=== PATIENT | female | born 1945 | race Caucasian/White ===

== ENCOUNTER 2019-06-28 10:51 | Outpatient (CLI) | payer MEDICARE, MEDICAID, SELFPAY ==
--- NOTE | 2019-06-28 11:01 | CT_ITS ---
WS: [id number] CT ABDOMEN AND PELVIS WITH CONTRAST HISTORY: ABDOMINAL PAIN, epigastric pain with nausea and vomiting. TECHNIQUE: Imaging performed of the abdomen and pelvis with IV contrast. Single phase imaging of the abdomen. Coronal and sagittal reformats are submitted. All CT scans at [facility] use at least one of these dose optimization techniques: automated exposure control; mA and/or kV adjustment per patient size (includes targeted exams where dose is matched to clinical indication); or iterativ e reconstruction. IV CONTRAST: Omnipaque 300; 95 mL IV. Oral contrast: Yes. DLP: 1116.77 mGycm COMPARISON: 04/05/2016 Lower thorax: Lung bases are clear. Heart is normal size. High density contrast in the distal esophag us from reflux disease. Liver/biliary system: Mild hepatic steatosis with no enlargement of the liver. Gallbladder: Normal. Pancreas: Normal. Spleen: Normal. Adrenal glands: Normal. Right kidney: Normal. Left kidney: Normal size kidney. Stable 6 mm hypodense nodule in the medial lower pole. Aorta: Mild atherosclerosis with no aneurysm. Lymphadenopathy: None. Free fluid: None. GI tract: Prior appendectomy. Abdominal wall: Thinning of the anterior abdominal wall but no herniation. Pelvis: Well-distended urinary bladder. No adenopathy or fluid. Bones: L4 anterolisthesis by 6 mm. Advanced degenerative disc disease and facet arthropathy at L4-5 a nd L5-S1. CT/CT abdomen pelvis w con* [id number] IMPRESSION: 1. Mild hepatic steatosis. 2. Prior appendectomy. 3. No acute abdominal or pelvic abnormalities. 4. Gastroesophageal reflux into the distal esophagus.
[2019-06-28 12:09] LABS: Blood Urea Nitrogen 10 mg/dL (8-23)
[2019-06-28] MEDS: iohexol 300 mg/mL 50 mL Btl PO (12:19)
[2019-06-28] MEDS: iohexol 300 mg/mL 100 mL Btl IV (12:55)
== END 2019-06-28 10:52 | disposition home or self-care (01) ==
LOC: RADWPI 11:00
PROVIDERS: Family Provider Family Medicine; PCP Family Medicine; Referring Provider Family Medicine; Visit Provider Surgery
DX: K21.9 Gastro-esophageal reflux disease without esophagitis (principal); K76.0 Fatty (change of) liver, not elsewhere classified
CPT/HCPCS: 74177; 82565; 84520; Q9967

== ENCOUNTER → 2019-10-31 13:07 | Outpatient (BNVA) | payer MEDICARE, MEDICAID, SELFPAY | PROVIDERS: Family Provider Family Medicine; PCP Family Medicine; Referring Provider Family Medicine; Visit Provider Podiatrist Foot & Ankle Surgery | DX: M79.672 Pain in left foot (principal); M79.671 Pain in right foot; E11.43 Type 2 diabetes mellitus with diabetic autonomic (poly)neuropathy; M20.12 Hallux valgus (acquired), left foot; M20.11 Hallux valgus (acquired), right foot | CPT/HCPCS: 73630 ==

== ENCOUNTER 2021-03-18 08:16 | Outpatient (CLI) | payer MEDICARE, MEDICAID, SELFPAY ==
--- NOTE | 2021-03-18 08:21 | MM_ITS ---
WS: [id number] BILATERAL DIGITAL SCREENING MAMMOGRAPHY WITH CAD CLINICAL INFORMATION: SCREENING HISTORY: Screening mammogram. No current complaints. COMPARISON: TECHNIQUE: Bilateral CC and MLO views. FINDINGS: Scattered fibroglandular densities bilaterally. No suspicious focal mass, asymmetry, calcifications, or architectural distortion. No evidence of malignancy. A few incidental punctate calcifications. Sta ble asymmetric breast tissue upper outer left breast. MM/[id number] IMPRESSION: BI-RADS: 2-Benign FOLLOW UP: 1 Year Follow-up Recommend return to annual screening mammography.
== END 2021-03-18 08:17 | disposition home or self-care (01) ==
PROVIDERS: PCP Family Medicine; Visit Provider Family Medicine
DX: Z12.31 Encounter for screening mammogram for malignant neoplasm of breast (principal)
CPT/HCPCS: 77067

== ENCOUNTER → 2022-03-22 10:47 | Outpatient (BNVA) | payer MEDICARE, MEDICAID, SELFPAY | PROVIDERS: PCP Family Medicine; Visit Provider Podiatrist Foot & Ankle Surgery | DX: E11.8 Type 2 diabetes mellitus with unspecified complications (principal); L60.3 Nail dystrophy; M72.2 Plantar fascial fibromatosis | CPT/HCPCS: 99213 ==

== ENCOUNTER → 2022-08-18 08:07 | Outpatient (BNVA) | payer MEDICARE, MEDICAID, SELFPAY | PROVIDERS: PCP Family Medicine; Visit Provider Podiatrist Foot & Ankle Surgery | DX: I73.9 Peripheral vascular disease, unspecified (principal); E11.8 Type 2 diabetes mellitus with unspecified complications; L60.3 Nail dystrophy; M72.2 Plantar fascial fibromatosis | CPT/HCPCS: 11721 ==

== ENCOUNTER → 2022-11-03 07:44 | Outpatient (BNVA) | payer MEDICARE, MEDICAID, SELFPAY | PROVIDERS: PCP Family Medicine; Visit Provider Podiatrist Foot & Ankle Surgery | DX: E11.8 Type 2 diabetes mellitus with unspecified complications (principal); L60.3 Nail dystrophy; M72.2 Plantar fascial fibromatosis; I73.9 Peripheral vascular disease, unspecified | CPT/HCPCS: 11721; 99213 ==

== ENCOUNTER → 2023-01-04 07:47 | Outpatient (BNVA) | payer MEDICARE, MEDICAID, SELFPAY | PROVIDERS: PCP Family Medicine; Visit Provider Podiatrist Foot & Ankle Surgery | DX: I73.9 Peripheral vascular disease, unspecified (principal); E11.9 Type 2 diabetes mellitus without complications; L60.3 Nail dystrophy | CPT/HCPCS: 11721 ==

== ENCOUNTER → 2023-03-15 08:34 | Outpatient (BNVA) | payer MEDICARE, MEDICAID, SELFPAY | PROVIDERS: PCP Family Medicine; Visit Provider Podiatrist Foot & Ankle Surgery | DX: E11.9 Type 2 diabetes mellitus without complications (principal); L60.3 Nail dystrophy; I73.9 Peripheral vascular disease, unspecified | CPT/HCPCS: 11721 ==

== ENCOUNTER → 2023-05-31 07:40 | Outpatient (BNVA) | payer MEDICARE, MEDICAID, SELFPAY | PROVIDERS: PCP Family Medicine; Visit Provider Podiatrist Foot & Ankle Surgery | DX: I73.9 Peripheral vascular disease, unspecified (principal); E11.69 Type 2 diabetes mellitus with other specified complication; L60.3 Nail dystrophy | CPT/HCPCS: 11721 ==

== ENCOUNTER → 2023-08-16 07:50 | Outpatient (BNVA) | payer MEDICARE, MEDICAID, SELFPAY | PROVIDERS: PCP Family Medicine; Visit Provider Podiatrist Foot & Ankle Surgery | DX: S99.921A Unspecified injury of right foot, initial encounter (principal); I73.9 Peripheral vascular disease, unspecified; L60.3 Nail dystrophy; L84 Corns and callosities; E11.69 Type 2 diabetes mellitus with other specified complication; S90.31XA Contusion of right foot, initial encounter; W20.8XXA Other cause of strike by thrown, projected or falling object, initial encounter | CPT/HCPCS: 11056; 11721; 73630; 99213 ==

== ENCOUNTER → 2023-11-14 06:51 | Outpatient (BNVA) | payer MEDICARE, MEDICAID, SELFPAY | PROVIDERS: PCP Family Medicine; Visit Provider Podiatrist Foot & Ankle Surgery | DX: I73.9 Peripheral vascular disease, unspecified (principal); L84 Corns and callosities; E11.69 Type 2 diabetes mellitus with other specified complication; L60.3 Nail dystrophy | CPT/HCPCS: 11056; 11721 ==

== ENCOUNTER 2024-01-24 11:41 | Outpatient (CLI) | payer MEDICARE, MEDICAID, SELFPAY ==
--- NOTE | 2024-01-24 11:45 | MM_ITS ---
WS: [id number] BILATERAL 3D TOMOSYNTHESIS DIGITAL SCREENING MAMMOGRAPHY WITH CAD CLINICAL INFORMATION: SCREENING HISTORY: Screening mammogram. No current complaints. COMPARISON: 2020 TECHNIQUE: Bilateral CC and MLO views. FINDINGS: Scattered fibroglandular densities bilaterally. No suspicious focal mass, asymmetry, calcifications, or architectural distortion. No evidence of malignancy. A few incidental punctate calcifications. Vas cular calcifications. MM/[id number] IMPRESSION: BI-RADS: 2-Benign FOLLOW UP: 1 Year Follow-up Recommend return to annual screening mammography.
== END 2024-01-24 11:42 | disposition home or self-care (01) ==
LOC: RAD 11:42
PROVIDERS: PCP Family Medicine; Visit Provider Family Medicine
DX: Z12.31 Encounter for screening mammogram for malignant neoplasm of breast (principal)
CPT/HCPCS: 77063; 77067

== ENCOUNTER → 2024-02-13 07:52 | Outpatient (BNVA) | payer MEDICARE, MEDICAID, SELFPAY | PROVIDERS: PCP Family Medicine; Visit Provider Podiatrist Foot & Ankle Surgery | DX: I73.9 Peripheral vascular disease, unspecified (principal); L84 Corns and callosities; E11.69 Type 2 diabetes mellitus with other specified complication; L60.3 Nail dystrophy; M19.071 Primary osteoarthritis, right ankle and foot | CPT/HCPCS: 11056; 11721; 99213 ==

== ENCOUNTER 2024-03-11 00:06 | Emergency (ER) | payer MEDICARE, MEDICAID, SELFPAY ==
[2024-03-11 00:08] VITALS: BP 172/96; PULSE 70; RESP 16; TEMP 36.7; O2SAT 96; BMI 31.1
--- NOTE | 2024-03-11 00:09 | CTR_ITS ---
PROCEDURE INFORMATION: Exam: CT Head Without Contrast Exam date and time: 03/11/2024 12:20 AM Age: 78 years old Clinical indication: Injury or trauma; Blunt trauma (contusions or hematomas); Patient HX: EMS arrival for fall at home. Patient thinks she May have had syncopal episode after getting up from using the bathroom. TECHNIQUE: Imaging protocol: Computed tomography of the head without contrast. Radiation optimization: All CT scans at this facility use at least one of these dose optimization techniques: automated exposure control; mA and/or kV adjustment per patient size (includes targeted exams where dose is matched to clinical indication); or iterative reconstruction. COMPARISON: No relevant prior studies available. RADIATION DOSE METRICS: Total DLP (mGy-cm): 1041.98 FINDINGS: Brain: Mild diffuse white matter disease likely reflecting chronic microvascular ischemic changes. Cerebral ventricles: No ventriculomegaly. Paranasal sinuses: Visualized sinuses are unremarkable. No fluid levels. Mastoid air cells: Visualized mastoid air cells are well aerated. Bones: Unremarkable. No acute fracture. Soft tissues: Unremarkable. CT/CT head wo con* [id number] IMPRESSION: No acute intracranial abnormality.
--- NOTE | 2024-03-11 00:10 | ECG_ITS ---
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 Measurements Intervals [place] Rate: 60 P: -74 [place]: 251 QRS: -61 QRSD: 123 T: 71 QT: 441 QTc: 443 Interpretive Statements SINUS RHYTHM WITH SINUS ARRHYTHMIA WITH FIRST DEGREE AV BLOCK LEFT AXIS DEVIATION [QRS AXIS < -30] POSSIBLE RIGHT VENTRICULAR CONDUCTION DELAY [RSR (QR) IN V1/V2] VOLTAGE CRITERIA FOR LVH [MEETS CRITERIA IN ONE OF: R(aVL), S(V1), R(V5), R(V5/V6)+S(V1)]. POSSIBLE ANTEROSEPTAL MYOCARDIAL INFARCTION , OF INDETERMINATE AGE [30 ms Q WAVE IN V1-V4] Compared to ECG 09/19/2016 13:02:28 Left-axis deviation now present.Left ventricular hypertrophy now present Sinus bradycardia no longer present.Incomplete right bundle-branch block no longer present Myocardial infarct finding still present Electronically Signed On 03-11-2024 23:29:05 CDT by Teresa Dawson M.D. [id number]
--- NOTE | 2024-03-11 00:10 | ED_ITS ---
HPI - Syncope 2 General: Chief Complaint: Fall Stated Complaint: Fall Time Seen by Provider: 03/11/24 00:07 Source: patient and EMS Mode of arrival: EMS Limitations: no limitations History of Present Illness: 78-year-old female states she got up in [place] to go to the bathroom states the rash went to the bathroom she stood up and had a syncopal event and did hit the floor. She denies any headache or chest pain before or after the event states she did hit her head but denies any headache currently. States she has passed out in the past. Denies any vomiting or diarrhea. Associated symptoms: Deny abdominal pain, chest pain, fever(s), headache(s) or nausea Related Data Home Medications Medication Instructions Recorded Confirmed aspirin 81 mg tablet,delayed 81 mg PO ONCE 07/03/19 02/13/24 release atenolol 50 mg tablet 50 mg PO ONCE 07/03/19 02/13/24 linagliptin 5 mg tablet (Tradjenta) 5 mg PO QAM 07/03/19 02/13/24 lisinopril 30 mg tablet 30 mg PO ONCE 07/03/19 02/13/24 pravastatin 20 mg tablet 20 mg PO ONCE 07/03/19 02/13/24 levothyroxine 25 mcg capsule 100 mcg PO ONCE 07/04/19 02/13/24 Previous Rx's Medication Instructions Recorded co-polymer orthotics #1 ea 02/13/24 diabetic shoes with 3 inserts #1 ea 02/22/24 Allergies Allergy/AdvReac Type Severity Reaction Status Date / Time metformin Allergy Intermediate tight Verified 02/13/24 07:56 muscle diphenhydramine Allergy Shortness Verified 02/13/24 07:56 of Breath egg Allergy ADR-Nausea Verified 02/13/24 07:56 shellfish derived Allergy ADR-Hyperte Verified 02/13/24 07:56 nsion Review of Systems 2 Const: Denies: fever(s), chills, body aches or change in appetite ENMT: Denies: throat pain or dental pain Card: Reports: syncope; Denies: chest pain Resp: Denies: dyspnea GI: Denies: abdominal pain, nausea, vomiting or diarrhea : Denies: dysuria Musc: Denies: neck pain or back pain Skin/Breast: Denies: rash Neuro: Denies: headache(s) PFS ED 2 PFS: Medical History (Updated 03/11/24 @ 01:36 by Alisson Moseley MD) Vomiting Incisional hernia Resolved Hypertension Hypothyroidism Hypercholesterolemia Surgical History History of appendectomy (04/2017) History of hernia repair History of hysterectomy Family History Denies family history of Anesthesia complication Bleeding disorder Social History Smoking and tobacco/nicotine status: never used tobacco/nicotine Alcohol intake: never Substance/Drug Use: never Lives independently: Yes Household members: family Physical Exam 2 Const: COMMON NORMALS: no acute distress, patient oriented x3 and healthy appearing HENMT: COMMON NORMALS: normocephalic and atraumatic HEAD & SCALP: n ormocephalic and atraumatic Eye: COMMON NORMALS: Equal, round and reactive pupils present and EOMs intact bilaterally PUPIL: Yes Equal, round and reactive pupils present Neck/C-Spine: COMMON NORMALS: full ROM and supple Chest: COMMONS NORMALS: normal inspection of the chest and normal palpation of entire chest wall Resp: COMMON NORMALS: normal respiratory effort, No retractions, No use of accessory muscles and clear to auscultation bilaterally AUSCULTATION: clear to auscultation bilaterally Cardio: COMMON NORMALS: regular rate, regular rhythm and No murmurs present (Cardio) RATE: regular rate RHYTHM: regular rhythm GI: COMMON NORMALS: Normal to inspection, nondistended, normoactive bowel sounds present, Soft to palpation, non-tender and no masses PALPATION: Yes Soft to palpation Extremity: COMMON NORMALS: normal to inspection and full ROM Neuro: COMMON NORMALS: patient oriented x3, moves all extremities and no focal motor deficits Psych: COMMON NORMALS: mental status grossly normal, Normal thought process present and cooperative THOUGHT PROCESS: Normal thought process present Skin: COMMON NORMALS: no rashes or lesions noted and no wounds GENERAL SKIN EXAM: no rashes or lesions noted Course 2 Vital Signs: Vital signs: Vital Signs Temperature 98.0 F 03/11/24 00:08 Pulse Rate 75 03/11/24 00:48 Respiratory Rate 18 03/11/24 00:48 Blood Pressure 175/101 03/11/24 00:44 Pulse Oximetry 98 03/11/24 00:48 Oxygen Delivery Me thod Room Air 03/11/24 00:08 MDM - Syncope Medical Decision Making Patient presents here after syncopal event blood work including head CT are all negative she has been well-appearing here with normal vitals likely a vagal response she is stable for discharge follow-up PCP return if worsening Medical Records I reviewed the patient's medical records. Lab Data I reviewed the patient's lab results. 03/11/24 00:55 03/11/24 00:[address] 03/11/24 00:09 IMPRESSION: No acute intracranial abnormality. Laboratory Results WBC 9.79 10^3/uL (3.29-11.43) 03/11/24 00:55 RBC 3.91 10^6/uL (3.85-5.65) 03/11/24 00:55 Hgb 12.50 g/dL (11.27-16.99) 03/11/24 00:55 Hct 39.6 % (36-47) 03/11/24 00:55 MCV 101.3 fl (85-98) H 03/11/24 00:55 MCH 32.0 pg (27-33) 03/11/24 00:55 MCHC 31.6 g/dL (30-55) 03/11/24 00:55 RDW 13.4 % (12.1-15.1) 03/11/24 00:55 Plt Count 260 10^3/cmm (157-399) 03/11/24 00:55 MPV 9.4 fL (7.4-10.4) 03/11/24 00:55 Neut % (Auto) 70.3 % 03/11/24 00:55 Lymph % (Auto) 15.6 % 03/11/24 00:55 [place] % (Auto) 7.7 % 03/11/24 00:55 Eos % (Auto) 5.2 % 03/11/24 00:55 Baso % (Auto) 0.6 % 03/11/24 00:55 Neut # (Auto) 6.88 10^3/uL (1.8-7.7) 03/11/24 00:55 Lymph # (Auto) 1.5 10^3/uL (0.8-4.8) 03/11/24 00:55 [place] # (Auto) 0.8 10^3/uL (0.2-0.9) 03/11/24 00:55 Eos # (Auto) 0.5 10^3/uL (0.0-0.8) 03/11/24 00:55 Baso # (Auto) 0.1 10^3/uL (0.0-0.1) 03/11/24 00:55 Nucleated RBC % (auto) 0 % 03/11/24 00:55 Nucleated RBCs # 0.0 /100WBC 03/11/24 00:55 Sodium 138 mmol/L (136-145) 03/11/24 00:55 Potassium 3.5 mmol/L (3.5-5.1) 03/11/24 00:55 Chloride 102 mmol/L (98-107) 03/11/24 00:55 Carbon Dioxide 23 mmol/L (22-29) 03/11/24 00:55 Anion Gap 16.5 (5-19) 03/11/24 00:55 BUN 17 mg/dL (8-23) 03/11/24 00:55 Creatinine 0.9 mg/dL (0.5-0.9) 03/11/24 00:55 GFR Calculation Not Reportable 03/11/24 00:55 Glucose 147 mg/dL (65-115) H 03/11/24 00:55 Calculated Osmolality 290 mOsm/kg (285-295) 03/11/24 00:55 Calcium 9.2 mg/dL (8.5-10.5) 03/11/24 00:55 Total Bilirubin 0.3 mg/dL (0.15-1.2) 03/11/24 00:55 AST 22 U/L (0-32) 03/11/24 00:55 ALT 29 U/L (0-33) 03/11/24 00:55 Alkaline Phosphatase 66 U/L (35-105) 03/11/24 00:55 Total Protein 7.2 g/dL (6.6-8.7) 03/11/24 00:55 Albumin 4.1 g/dL (3.5-5.2) 03/11/24 00:55 Globulin 3.1 g/dL (1.3-4.6) 03/11/24 00:55 All radiology interpretation(s) finalized by discharge EKG Data EKG 1: I personally reviewed and interpreted this EKG as follows: EKG interpretation date: 03/11/24 EKG interpretation time: 00:36 Interpretation: nsr hr [address] elevation qrs 123 qtc 442 Discharge Plan Discharge Patient Disposition: Home Clinical Impression: Syncope, Closed head injury Condition: Stable Prescriptions: No Action Tradjenta 5 mg tablet 5 mg PO QAM aspirin 81 mg tablet,delayed release (DR/EC) 81 mg PO ONCE atenolol 50 mg tablet 50 mg PO ONCE lisinopril 30 mg tablet 30 mg PO ONCE pravastatin 20 mg tablet 20 mg PO ONCE levothyroxine 25 mcg capsule 100 mcg PO ONCE (DME) co-polymer orthotics See Rx Instructions .Route .MEDSUPPLY Qty: 1 0RF Rx Instructions: As directed (DME) diabetic shoes with 3 inserts See Rx Instructions .Route .MEDSUPPLY Qty: 1 0RF Rx Instructions: Directed to [facility] Discharge Orders: Discharge ED (Routine); Ordered 03/11/24 Ordered By: Alisson Moseley Referrals: Aziza Avila MD [Primary Care Provider] - 4-7 days Discharge Diet: Advance as tolerated Discharge Activity: Resume usual activity Patient Instructions: Syncope (ED) Coding Level of Care Code ED Pad Assembler for Chg Geovany
[2024-03-11 00:44] VITALS: BP 175/101; PULSE 68; RESP 16; O2SAT 96
[2024-03-11 00:48] VITALS: PULSE 75; RESP 18; O2SAT 98
[2024-03-11 01:17] LABS: Basophils # 0.1 10^3/uL (0.0-0.1); Basophils % 0.6 %; Eosinophils # 0.5 10^3/uL (0.0-0.8); Eosinophils % 5.2 %; Hematocrit 39.6 % (36-47); Lymphocytes # 1.5 10^3/uL (0.8-4.8); Lymphocytes % 15.6 %; Mean Corpuscular HGB Conc 31.6 g/dL (30-55); Mean Corpuscular Volume 101.3 fl (85-98); Mean Platelet Volume 9.4 fL (7.4-10.4); Monocytes # 0.8 10^3/uL (0.2-0.9); Monocytes % 7.7 %; Neutrophils # 6.88 10^3/uL (1.8-7.7); Neutrophils % 70.3 %; Nucleated Red Blood Cells % 0 %; Platelet Count 260 10^3/cmm (157-399); Red Blood Count 3.91 10^6/uL (3.85-5.65); Red Cell Distribution Width 13.4 % (12.1-15.1); White Blood Count 9.79 10^3/uL (3.29-11.43)
[2024-03-11 01:35] LABS: Alanine Aminotransferase 29 U/L (0-33); Albumin Level 4.1 g/dL (3.5-5.2); Alkaline Phosphatase 66 U/L (35-105); Anion Gap 16.5 (5-19); Aspartate Amino Transferase 22 U/L (0-32); Blood Urea Nitrogen 17 mg/dL (8-23); Calcium 9.2 mg/dL (8.5-10.5); Carbon Dioxide 23 mmol/L (22-29); Chloride 102 mmol/L (98-107); Creatinine Clr Calc Pharmacy 49.5318; Globulin 3.1 g/dL (1.3-4.6); Glucose 147 mg/dL (65-115); Osmolality Calculated 290 mOsm/kg (285-295); Potassium 3.5 mmol/L (3.5-5.1); Sodium 138 mmol/L (136-145); Total Bilirubin 0.3 mg/dL (0.15-1.2); Total Protein 7.2 g/dL (6.6-8.7)
[2024-03-11 01:57] VITALS: BP 168/92; PULSE 75; RESP 18; O2SAT 98
== END 2024-03-11 01:58 | disposition home or self-care (01) ==
PROVIDERS: Emergency Provider Emergency Medicine; PCP Family Medicine
DX: R55 Syncope and collapse (principal); S09.8XXA Other specified injuries of head, initial encounter; I10 Essential (primary) hypertension; W18.39XA Other fall on same level, initial encounter
CPT/HCPCS: 36415; 70450; 80053; 85025; 93005; 99284

== ENCOUNTER 2024-05-07 14:07 | Outpatient (CLI) | payer MEDICARE, MEDICAID, SELFPAY ==
--- NOTE | 2024-05-07 14:10 | XR_ITS ---
WS: [id number] DEXA (DUAL ENERGY X-RAY ABSORPTIOMETRY) Bone mineral density was performed using a eduFire machine. HISTORY: POSTMENOPAUSAL COMPARISON: None available. Lumbar spine BMD (L1-L4): 0.969 g/cm2 T score: -1.8 Z score: -0.2 Total hip BMD: Left: 0.778 g/cm2. T score: -1.8 Z score: -0.1 Right: 0.795 g/cm2. T score: -1.7 Z score: 0.1 10 year probability of a major osteoporotic fracture is 28.1%. XR/XR DEXA axial skeleton* [id number] IMPRESSION: OSTEOPENIA based upon the WHO classification for females.
== END 2024-05-07 14:08 | disposition home or self-care (01) ==
LOC: RAD 14:07
PROVIDERS: PCP Family Medicine; Visit Provider Nurse Practitioner Family
DX: Z13.820 Encounter for screening for osteoporosis (principal); Z78.0 Asymptomatic menopausal state; M85.80 Other specified disorders of bone density and structure, unspecified site
CPT/HCPCS: 77080

== ENCOUNTER → 2024-05-14 08:09 | Outpatient (BNVA) | payer MEDICARE, MEDICAID, SELFPAY | PROVIDERS: PCP Family Medicine; Visit Provider Podiatrist Foot & Ankle Surgery | DX: I73.9 Peripheral vascular disease, unspecified (principal); L84 Corns and callosities; E11.69 Type 2 diabetes mellitus with other specified complication; L60.3 Nail dystrophy | CPT/HCPCS: 11056; 11721 ==

== ENCOUNTER → 2024-08-13 08:37 | Outpatient (BNVA) | payer MEDICARE, MEDICAID, SELFPAY | PROVIDERS: PCP Family Medicine; Visit Provider Podiatrist Foot & Ankle Surgery | DX: E11.69 Type 2 diabetes mellitus with other specified complication (principal); L84 Corns and callosities; L60.3 Nail dystrophy; I73.9 Peripheral vascular disease, unspecified | CPT/HCPCS: 11721 ==

== ENCOUNTER → 2024-11-26 08:25 | Outpatient (BNVA) | payer MEDICARE, MEDICAID, SELFPAY | PROVIDERS: PCP Family Medicine; Visit Provider Podiatrist Foot & Ankle Surgery | DX: E11.8 Type 2 diabetes mellitus with unspecified complications (principal); L60.3 Nail dystrophy; L84 Corns and callosities; I73.9 Peripheral vascular disease, unspecified; E11.69 Type 2 diabetes mellitus with other specified complication | CPT/HCPCS: 11056; 11721 ==

== ENCOUNTER → 2025-01-20 08:35 | Outpatient (BNVA) | payer MEDICARE, MEDICAID, SELFPAY | PROVIDERS: PCP Family Medicine; Visit Provider Family Medicine | DX: E78.2 Mixed hyperlipidemia (principal); E55.9 Vitamin D deficiency, unspecified; R79.89 Other specified abnormal findings of blood chemistry; R01.1 Cardiac murmur, unspecified; R60.0 Localized edema; E11.65 Type 2 diabetes mellitus with hyperglycemia; I73.9 Peripheral vascular disease, unspecified; E03.9 Hypothyroidism, unspecified; I10 Essential (primary) hypertension | CPT/HCPCS: 80053; 80061; 82306; 82607; 83036; 83735; 83880; 84439; 84443; 85025 ==

== ENCOUNTER 2025-02-12 06:05 | Outpatient (CLI) | payer MEDICARE, MEDICAID, SELFPAY ==
--- NOTE | 2025-02-12 06:09 | USCV_ITS ---
Amara Estrada Age: 79 Gender: F : 1945 Exam Date: 02/12/2025 06:22 Ordering Phys: Aziza Avila MD Technologist: [place] [facility] [place]: cp sob BP: 123 / 75 HR: 77 Rhythm: Sinus Technical Quality: Adequate MEASUREMENTS (Male / Female) Normal Values 2D ECHO LV Diastolic Diameter PLAX 5.2 cm 4.2 - 5.9 / 3.9 - 5.3 cm IVS Diastolic Thickness 1.3 cm 0.6 - 1.0 / 0.6 - 0.9 cm IVS Systolic Thickness 2.0 cm LVPW Diastolic Thickness 1.4 cm 0.6 - 1.0 / 0.6 - 0.9 cm LVPW Systolic Thickness 1.7 cm LVOT Diameter 2.5 cm LV Ejection Fraction 2D Teich 74.6 % LV Ejection Fraction MOD 4C 57.8 % LV Ejection Fraction MOD 2C 76.2 % LV Ejection Fraction 2C AL 75.2 % LA Diameter 3.2 cm RA Systolic Volume 4C AL 49.9 ml RA Systolic Volume 4C MOD 50.1 ml LA Sys Volume AL 41.8 cm cubed LA Sys Volume Index AL 21.7 cm cubed/m squared Aorta at Sinotubular Diameter 3.5 cm M-MODE LA Ao Ratio MM 1.0 AV Cusp Separation MM 2.0 cm DOPPLER AV Peak Velocity 173.0 cm/s LVOT Peak Velocity 105.0 cm/s AV Area Cont Eq vti 3.3 cm squared AV Area Cont Eq pk 3.1 cm squared MV Peak Velocity 107.0 cm/s MV Area PHT 3.7 cm squared TR Peak Velocity 162.0 cm/s TR Peak Gradient 10.5 mmHg TV Peak E Velocity 85.0 cm/s PV Peak Velocity 107.0 cm/s FINDINGS Left Ventricle Normal left ventricular size and systolic function with no regional wall motion abnormalities. Normal left ventricular size and systolic function, EF 60-65%. Right Ventricle Normal right ventricular size and systolic function. Right Atrium Normal right atrial size. Left Atrium Normal left atrial size. Mitral Valve Structurally normal mitral valve. Mild mitral regurgitation. Aortic Valve Thickened aortic valve. No significant stenosis or regurgitation. Tricuspid Valve Insufficient TR jet to calculate RVSP Pulmonic Valve Not well visualized Pericardium Normal Aorta Normal in size IVC Not well visualized CONCLUSIONS LV systolic function is normal with EF of 60-65%. Mild mitral regurgitation No comparison studies are available. Basilio Bay MD (Electronically Signed) Final Date: 14 February 2025 11:50 S
== END 2025-02-12 06:06 | disposition home or self-care (01) ==
LOC: RAD 06:06
PROVIDERS: PCP Family Medicine; Visit Provider Family Medicine
DX: R60.0 Localized edema (principal); I34.0 Nonrheumatic mitral (valve) insufficiency; I35.8 Other nonrheumatic aortic valve disorders
CPT/HCPCS: 93306

== ENCOUNTER → 2025-02-24 07:26 | Outpatient (BNVA) | payer MEDICARE, MEDICAID, SELFPAY | PROVIDERS: PCP Family Medicine; Visit Provider Podiatrist Foot & Ankle Surgery | DX: E11.8 Type 2 diabetes mellitus with unspecified complications (principal); L60.3 Nail dystrophy; L84 Corns and callosities; I73.9 Peripheral vascular disease, unspecified; E11.69 Type 2 diabetes mellitus with other specified complication | CPT/HCPCS: 11056; 11721 ==

== ENCOUNTER 2025-02-26 13:06 | Outpatient (CLI) | payer MEDICARE, MEDICAID, SELFPAY ==
--- NOTE | 2025-02-26 13:10 | MR_ITS ---
WS: [id number] MRI BRAIN WITH HIGH-RESOLUTION IMAGING THROUGH THE INTERNAL AUDITORY CANALS WITHOUT AND WITH CONTRAST HISTORY: SENSORINEURAL HEARING LOSS,BILATERAL COMPARISON: CT head 03/11/2024 TECHNIQUE: Multiplanar, multisequence imaging is performed through the brain. Additional 3 mm imaging performed in multiple planes through the internal auditory canal. Postcontrast imaging with 16 ml's of MultiHance. No acute intracranial hemorrhage, midline shift, edema or mass effect. Mild symmetric atrophy and mild small vessel changes. No prior infarct. Ventricles and extra-axial spaces are normal. No inferior displacement of cerebellar tonsils. Clivus and pituitary gland are normal. Internal and external auditory canals: Unremarkable. Cranial nerves VII and VIII complexes: Unremarkable. No enhancement or mass. Cerebellopontine angles: Normal. Paranasal sinuses: Normal. Mastoid air cells: Normal. Calvarium and scalp: Normal. Visualized [place] and dural venous sinuses demonstrate no abnormality. MR/MR iac's wo/w con* [id number] IMPRESSION: 1. No mass or abnormal enhancement in the internal auditory canals or at the c erebellopontine angles. 2. Mild cerebral atrophy and small vessel disease. 3. No enhancing masses. 4. No hydrocephalus.
[2025-02-26] MEDS: gadobenate dimeglumine 20 mL vial IV (14:33)
== END 2025-02-26 13:07 | disposition home or self-care (01) ==
LOC: RAD 13:07
PROVIDERS: PCP Family Medicine; Visit Provider Nurse Practitioner Family
DX: H90.3 Sensorineural hearing loss, bilateral (principal)
CPT/HCPCS: 70553

== ENCOUNTER → 2025-05-26 07:11 | Outpatient (BNVA) | payer MEDICARE, MEDICAID, SELFPAY | PROVIDERS: PCP Family Medicine; Visit Provider Podiatrist Foot & Ankle Surgery | DX: E11.69 Type 2 diabetes mellitus with other specified complication (principal); L60.3 Nail dystrophy; L84 Corns and callosities; I73.9 Peripheral vascular disease, unspecified | CPT/HCPCS: 11056; 11721 ==